=== PATIENT | male | born 1995 | race Caucasian/White ===

== ENCOUNTER → 2018-04-10 | Outpatient (CLI) | payer OTHER | LOC: M WUC 11:18 | DX: S20.219A Contusion of unspecified front wall of thorax, initial encounter (principal); X58.XXXA Exposure to other specified factors, initial encounter; Y92.89 Other specified places as the place of occurrence of the external cause; Y99.9 Unspecified external cause status; Y93.9 Activity, unspecified | CPT/HCPCS: 71101 ==

== ENCOUNTER → 2020-04-19 | Outpatient (CLI) | payer OTHER ==
--- NOTE | 2020-04-19 11:27 | REP ---
Clinical: Trauma. Technique: AP, lateral, bilateral oblique views of the left wrist. Findings: There is a nondisplaced fracture at the base of the fifth metacarpal bone and possible fracture at the base of the fourth metacarpal bone. The carpal bones and wrist appear otherwise normal. Impression: Nondisplaced fracture at the base of the fifth metacarpal bone. Possible nondisplaced fracture at the base of the fourth metacarpal bone. Electronically Signed by Ja Hoang MD 04/19/2020 11:18 A
--- NOTE | 2020-04-19 11:27 | REP ---
Clinical: Trauma. Technique: AP, lateral, bilateral oblique views of the left hand. Findings: Fracture at the base of the fifth metacarpal bone and possible fracture at the base of the fourth metacarpal bone noted. Remainder of the examination appears normal. Impression: Nondisplaced fractures at the base of the fifth and possible fracture at the base of the fourth metacarpal bone as well. Electronically Signed by Ja Hoang MD 04/19/2020 11:19 A
== END ==
LOC: M LRY 10:39
PROVIDERS: ATTEND Physician Assistant
DX: S62.347A Nondisplaced fracture of base of fifth metacarpal bone, left hand, initial encounter for closed fracture (principal)